=== PATIENT | female | born 2000 | race Caucasian/White ===

== ENCOUNTER 2021-05-21 12:34 | Outpatient (CLI) | payer SELFPAY ==
[2021-05-21 13:02] VITALS: BP 119/58
[2021-05-21] MEDS ORDERED: ACETAMINOPHEN 500 MG TAB PO ONE (13:36)
--- NOTE | 2021-05-21 17:56 | Ultrasound Report ---
ULTRASOUND BIOPHYSICAL PROFILE INDICATION: wellbeing. COMPARISON: None available. FINDINGS: breathing movement = 2 Gross body movement = 2 tone = 2 Qualitative amniotic fluid volume = 2 Total biophysical score = 8/8 SRIRAM 18.9 cm. Presentation is Cephalic. heart rate is 152 beats per minute. IMPRESSION: biophysical profile = 10/01 Amniotic fluid index is 18.9 cm, within normal limits. Signer Name: Gordon Youngblood MD Signed: 05/21/2021 5:51 PM Workstation Name: [id number]
== END 2021-05-21 15:47 | disposition home or self-care (01) ==
LOC: TRG 12:34 → APU 12:35 → TRG 15:47
PROVIDERS: ATTEND Obstetrics & Gynecology
DX: O26.893 Other specified pregnancy related conditions, third trimester (principal); R05.9 Cough, unspecified; Z3A.32 32 weeks gestation of pregnancy
CPT/HCPCS: 59025; 76815; 76819

== ENCOUNTER 2021-07-11 10:56 | Inpatient (IN) | payer MEDICAID ==
--- NOTE | 2021-07-11 12:57 | Ultrasound Report ---
ULTRASOUND BIOPHYSICAL PROFILE INDICATION: well being. COMPARISON: 05/21/2021 FINDINGS: heart rate is 133 beats per minute. breathing movement = 2 Gross body movement = 2 tone = 2 Qualitative amniotic fluid volume = 2 IMPRESSION: biophysical profile = 10/01 Signer Name: Ozzie Hairston Jr, MD Signed: 07/11/2021 12:52 PM Workstation Name: [id number]
--- NOTE | 2021-07-11 13:00 | Ultrasound Report ---
ULTRASOUND OBSTETRIC COMPLETE INDICATION / CLINICAL INFORMATION: well being. Clinical Gestational Age (GA) in weeks.days: 39.3 TECHNIQUE: Transabdominal. COMPARISON: 05/21/2021 FINDINGS: NUMBER: Single PRESENTATION: cephalic PLACENTA: Anterior, grade 2 and free of the os. No evidence for abruption. MATERNAL ADNEXA: No significant abnormality. AMNIOTIC FLUID VOLUME: normal AMNIOTIC FLUID INDEX (SRIRAM) in cm (if measured): 10.9 ANATOMY: anatomical survey was not performed MEASUREMENTS: - Biparietal Diameter = 9.5 cm = 38.5 weeks.days - Head Circumference = 34.8 cm = 40.3 weeks.days - Abdominal Circumference = 33.5 cm = 37.3 weeks.days - Femur Length = 7.4 cm = 37.5 weeks.days - Estimated Weight (in grams, if calculated): 3364 - Heart Rate (beats per minute): 142 ADDITIONAL FINDINGS: None. PERCENTILE ESTIMATED WEIGHT (if calculated): 37 AVERAGE ULTRASOUND AGE (AUA) in weeks.days = 38.4 IMPRESSION: 1. Single intrauterine with AUA of 38.4 weeks.days 2. No significant sonographic abnormality. Signer Name: Ozzie Hairston Jr, MD Signed: 07/11/2021 12:56 PM Workstation Name: [id number]
[2021-07-11] MEDS ORDERED: OXYTOCIN 10 UNIT/1 ML INJ IM PRN (15:59)
[2021-07-11] MEDS ORDERED: PROMETHAZINE 25 MG TAB PO PRN (15:59)
[2021-07-11] MEDS ORDERED: fentaNYL 100 MCG/2 ML INJ IV PRN (15:59)
[2021-07-11] MEDS ORDERED: miSOPROStol 200 MCG TAB PR PRN (15:59)
[2021-07-11] MEDS ORDERED: NalbUPHINE 10 MG/1 ML INJ IV PRN (15:59)
[2021-07-11] MEDS ORDERED: CARBOPROST TROMETHAMINE 250 MCG/1 ML INJ IM PRN (15:59)
[2021-07-11] MEDS ORDERED: ONDANSETRON 4 MG/2 ML INJ IV PRN (15:59)
[2021-07-11] MEDS ORDERED: TERBUTALINE 1 MG/1 ML INJ SUB-Q PRN (15:59)
[2021-07-11] MEDS ORDERED: ACETAMINOPHEN 325 MG TAB PO PRN (15:59)
[2021-07-11] MEDS ORDERED: ePHEDrine SULFATE 50 MG/1 ML INJ IV PRN (15:59)
[2021-07-11] MEDS ORDERED: LIDOCAINE (2%) 20 MG/1 ML VIAL 20 ML MDV INFILTRATI ONE (15:59)
[2021-07-11] MEDS ORDERED: LOPERAMIDE 2 MG CAP PO PRN (15:59)
[2021-07-11] MEDS ORDERED: MINERAL OIL 30 ML ORAL LIQD PO PRN (15:59)
[2021-07-11] MEDS ORDERED: METHYLERGONOVINE MALEATE 0.2 MG/ML VIAL IM PRN (15:59)
[2021-07-11] MEDS ORDERED: OXYTOCIN DRIP 30 UNITS/500 ML BAG IV SCH (16:00)
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
[2021-07-11 19:28] LABS: Hemoglobin 12.2 gm/dl (10.1-14.3); Mean Corpuscular HGB Conc 33 % (30-34); Mean Corpuscular Volume 84 fl (79-97); Platelet Count 206 K/mm3 (140-440); Red Blood Count 4.38 M/mm3 (3.65-5.03); Red Cell Distribution Width 15.1 % (13.2-15.2)
[2021-07-11] MEDS: LACTATED RINGERS 1,000 ML IV SCH (21:25)
[2021-07-11] MEDS: miSOPROStol 25 MCG TAB PO SCH (22:27)
[2021-07-12] MEDS: miSOPROStol 25 MCG TAB PO SCH (03:25)
[2021-07-12 06:21] LABS: Amphetamine Screen,Urine Negative; Benzodiazepines Screen,Urine Negative; Cocaine Screen,Urine Negative; Methadone Screen,Urine Negative; Opiate Screen,Urine Negative
[2021-07-12 06:38] LABS: Cannabinoid Screen,Urine PRESUMPTIVE POSITIVE
[2021-07-12] MEDS ORDERED: ONDANSETRON 4 MG/2 ML INJ IV PRN ×2 (09:00→19:36)
[2021-07-12] MEDS: OXYTOCIN DRIP 30 UNITS/500 ML BAG IV SCH ×2 (11:17→18:25)
[2021-07-12] MEDS ORDERED: BUPIVACAINE/PF (0.25%) 2.5 MG/ML 10 ML VIAL INFILTRATI ONE (12:40)
[2021-07-12] MEDS ORDERED: fentaNYL-BUPIV 2 MCG/ML-0.125% 200 MCG/100 ML BAG EPIDURAL ONE (13:23)
[2021-07-12] MEDS ORDERED: ePHEDrine SULFATE 50 MG/1 ML INJ IV PRN (13:41)
[2021-07-12] MEDS ORDERED: NALOXONE 2 MG/2 ML INJ IV PRN (13:41)
--- NOTE | 2021-07-12 13:45 | Anesthesia Consultation ---
Anesthesia Consult and Med Hx Date of service: 07/12/21 - Airway Anesthetic Teeth Evaluation: Good ROM Head & Neck: Adequate Mental/Hyoid Distance: Adequate Mallampati Class: Class II Intubation Access Assessment: Probably Good - Pulmonary Exam CTA: Yes - Cardiac Exam Cardiac Exam: RRR - Pre-Operative Health Status ASA Pre-Surgery Classification: ASA2 Proposed Anesthetic Plan: Epidural - Pre-Anesthesia Comment Pre-Anesthesia Comments: D&E No Anesthesia Complications - Pulmonary Hx Asthma: No COPD: No Hx Pneumonia: No - Cardiovascular System Hx Hypertension: No - Central Nervous System Hx Seizures: No Hx Psychiatric Problems: Yes (PTSD, Depression) - Endocrine Hx Renal Disease: No Hx End Stage Renal Disease: No Hx Liver Disease: No Hx Insulin Dependent Diabetes: No Hx Non-Insulin Dependent Diabetes: No Hx Hypothyroidism: No Hx Hyperthyroidism: No - Hematic Hx Anemia: No Hx Sickle Cell Disease: No - Other Systems Hx Alcohol Use: No Hx Substance Use: No
--- NOTE | 2021-07-12 13:50 | Progress Note ---
Labor Epidural - Labor Epidural Start Time: 12:45 Stop Time: 12:54 Performed by:: JANE DELVALLE Procedure: Patient is requesting a laboring epidural for laboring pain. Patient IDed, H&P reviewed, all questions and concerns were answered, and consent was signed. Timeout was performed at bedside. Patient in sitting position. Sterile prep and drape was performed. [3] ml of 1% lidocaine skin wheal at L[3]- L [4]. 17- gauge Tuohy epidural needle was advanced to loss of resistance with saline technique 6cm. Single dural perforation via 24 gauge spinal needle placed through the shaft of Epidural needle. Positive clear CSF via spinal needle. Negative CSF, negative blood via Epidural needle. Epidural catheter advanced to [10] centimeters. [NEGATIVE] Aspiration [NEGATIVE] test dose. Negative Paresthesia. Sterile dressing applied. Patient tolerated procedure. Pain relieved post procedure from 8/10 to 0/10.
[2021-07-12] MEDS ORDERED: fentaNYL-BUPIV 2 MCG/ML-0.125% 200 MCG/100 ML BAG EPIDURAL SCH (15:00)
[2021-07-12] MEDS ORDERED: miSOPROStol 200 MCG TAB ONE (15:54)
[2021-07-12] MEDS ORDERED: OXYTOCIN 10 UNIT/1 ML INJ ONE (15:54)
--- NOTE | 2021-07-12 16:31 | Procedure Note ---
OB Delivery Note - Delivery Date of Delivery: 07/12/21 Surgeon: LONNIE BONILLA Estimated blood loss: 300cc - Vaginal Delivery presentation: vertex Delivery position: OA Intrapartum events: abruption (partial), shoulder dystocia Delivery induction: oxytocin Delivery augmentation: rupture of membranes Delivery monitor: external FHT, external uterine Route of delivery: Delivery placenta: spontaneous (with small area of abruption) Episiotomy: none Delivery laceration: 2nd degree (perineal ) Delivery repair: vicryl, chromic Anesthesia: epidural Delivery comments: pt complete after given epidural and pitocin. Pt c/o pelvic pressure at anterior lip and same reduced with difficulty to complete. SAVD of viable male . Shoulder dystocia relieved with Cruz, suprapubic pressure and then delivery of posterior left arm and then anterior right arm followed by the body. Amniotic fluid slimmy but clear. Spontaneous delivery of partially placenta with 3vessel cord and IV fell out and therefore given pitocin 10mg IM to buttock and cytotec 800mcg per rectum. Bimanual massage done and lower uterine segment evacuated of clots and Visualization of cervix show no lacerations. Pt sustained 2nd degree perineal laceration towards the right side. 2-0 chromic vicryl used to repair laceration in a running locked fashion with excellent hemostasis. Additional right labial 1st laceration reapproximated with 2-0 chromic running locked sutue and excellent hemostasis remains. Mom and baby stable. - A at 1 minute: 8 at 5 minutes: 9 Infant Gender: Male (wt 3510g; slimmy clear amniotic fluid)
[2021-07-12 17:52] LABS: Alanine Aminotransferase 12 units/L (7-56); Albumin 3.7 g/dL (3.9-5); Blood Urea Nitrogen 9 mg/dL (7-17); Calcium 9.3 mg/dL (8.4-10.2); Hemolysis Index 0
[2021-07-12 17:53] LABS: BUN/Creatinine Ratio 15
[2021-07-12] MEDS ORDERED: PROMETHAZINE 25 MG RECT SUPP PR PRN (19:36)
[2021-07-12] MEDS ORDERED: diphenhydrAMINE 25 MG CAP PO PRN (19:36)
[2021-07-12] MEDS ORDERED: oxyCODONE /ACETAMINOPHEN 5-325MG TAB PO PRN (19:36)
[2021-07-12] MEDS ORDERED: ACETAMINOPHEN 325 MG TAB PO PRN (19:36)
[2021-07-12] MEDS ORDERED: PROMETHAZINE 25 MG TAB PO PRN (19:36)
[2021-07-12] MEDS ORDERED: MAGNESIUM HYDROXIDE (MOM) ORAL LIQD UDC PO PRN (19:36)
[2021-07-12] MEDS ORDERED: WITCH HAZEL/ GLYCERIN PAD TP PRN (19:36)
[2021-07-12] MEDS ORDERED: LANOLIN/ZINC/DIMETHICONE (LANSINOH) 7 GM TP PRN (19:36)
[2021-07-12] MEDS: IBUPROFEN 800 MG TAB PO SCH (20:25)
[2021-07-13] MEDS: LACTATED RINGERS 1,000 ML IV SCH (02:24)
[2021-07-13] MEDS: IBUPROFEN 800 MG TAB PO SCH ×3 (02:45→20:18)
[2021-07-13 08:40] LABS: Hematocrit 30.9 % (30.3-42.9); Hemoglobin 10.3 gm/dl (10.1-14.3); Mean Corpuscular HGB Conc 33 % (30-34); Mean Corpuscular Volume 84 fl (79-97); Platelet Count 179 K/mm3 (140-440); Red Blood Count 3.67 M/mm3 (3.65-5.03); Red Cell Distribution Width 15.2 % (13.2-15.2)
--- NOTE | 2021-07-13 09:18 | Post Anesthesia Evaluation ---
- Post Anesthesia Evaluation Patient Participated: Yes Airway Patent: Yes Stable Respiratory Function: Yes Nausea/Vomiting: No Temp > 96.8F: Yes Pain Manageable: Yes Adequeate Hydration: Yes Anesthesia Complications: No Block Receding Appropriately: Yes Patient on Ventilator: No
--- NOTE | 2021-07-13 12:08 | Progress Note ---
Assessment and Plan A: day 1 S/P . Anemia. P: Supplement with oral iron. Continue routine care. Anticipate discharge home tomorrow if patient continues to do well. Subjective - Subjective Date of service: 07/13/21 Principal diagnosis: day 1 S/P Patient reports: appetite normal, voiding normally, pain well controlled, flatus, ambulating normally, no dizzy ambulation, no nauseated Auberry: doing well Objective - Vital Signs Latest vital signs: Vital Signs Temp Pulse Resp BP BP Pulse Ox Pulse Ox 07/13/21 08:00 98 07/13/21 07:54 73 22 124/62 98 07/13/21 04:05 98.2 F 82 20 136/68 100 07/13/21 00:07 98.2 F 76 20 123/70 99 07/12/21 21:01 98.2 F 78 20 117/74 100 07/12/21 20:14 98.1 F 79 20 131/77 98 98 07/12/21 17:20 80 125/60 07/12/21 16:50 93 H 109/67 07/12/21 16:20 92 H 118/58 07/12/21 15:50 88 130/66 07/12/21 15:21 99 H 136/66 07/12/21 15:06 83 99 07/12/21 15:01 68 98 07/12/21 14:56 78 99 07/12/21 14:51 77 98 07/12/21 14:50 96 H 125/87 91 07/12/21 14:46 83 98 07/12/21 14:41 73 97 07/12/21 14:36 69 97 07/12/21 14:31 71 99 07/12/21 14:26 72 98 07/12/21 14:21 69 146/91 100 07/12/21 14:19 67 92 07/12/21 14:16 70 179/84 99 07/12/21 14:11 75 149/72 100 07/12/21 14:06 73 134/100 07/12/21 14:05 98 H 97 07/12/21 14:00 77 146/113 98 07/12/21 13:55 73 152/89 97 07/12/21 13:50 72 160/99 97 07/12/21 13:45 72 98 07/12/21 13:44 73 152/87 07/12/21 13:40 74 98 07/12/21 13:39 70 138/94 07/12/21 13:38 20 138/65 07/12/21 13:35 74 138/89 99 07/12/21 13:30 64 142/72 99 07/12/21 13:25 81 140/87 95 07/12/21 13:20 80 175/89 99 07/12/21 13:15 79 162/90 99 07/12/21 13:12 76 93 07/12/21 13:10 84 100 07/12/21 13:09 84 133/63 07/12/21 13:05 88 99 07/12/21 13:04 80 138/65 07/12/21 13:00 76 138/62 99 07/12/21 12:55 82 139/77 99 07/12/21 12:50 73 162/96 100 07/12/21 12:45 88 130/93 95 07/12/21 12:40 76 105/57 97 07/12/21 12:35 78 99 07/12/21 12:30 85 98 07/12/21 12:25 81 134/82 98 07/12/21 12:20 76 98 07/12/21 12:15 77 97 07/12/21 12:11 70 144/85 07/12/21 12:10 72 91 Intake and Output 07/12/21 07/13/21 07/13/21 23:59 07:59 15:59 Intake Total 100 240 Output Total 1 Balance 100 239 Intake: IV 100 PITOCin/NS 30 UNIT/500ML 0 30 units In 500 ml @ 40 mls/hr IV TITR [facility] Rx#: [id number] ceFAZolin 2 GM In NaCl 0. 100 9% 100 ml @ 200 mls/hr IV Q8H [facility] Rx#:[id number] Oral 240 Output: Urine 1 Void 1 Other: Total, Intake Amount 240 Total, Output Amount 1 Estimated Blood Loss 300 - Exam Cardiovascular: Present: Regular rate Lungs: Present: Clear to auscultation Abdomen: Present: normal appearance, soft. Absent: distention, tenderness, guarding, rigidity Uterus: Present: normal, firm, fundal height below umbilicus. Absent: bogginess, tenderness Extremities: Absent: tenderness, edema - Labs Labs: Abnormal lab results 05/19/22 05/20/22 Range/Units 16:39 08:00 WBC 13.6 H (4.5-11.0) K/mm3 Carbon Dioxide 21 L (22-30) mmol/L Alkaline Phosphatase 224 H (35-129) units/L Total Protein 6.1 L (6.3-8.2) g/dL Albumin 3.7 L (3.9-5) g/dL
[2021-07-13] MEDS: PRENATAL VIT27-FE FUMARATE-FOLIC ACID VIT TAB PO SCH (12:17)
[2021-07-13] MEDS: FERROUS SULFATE 325 MG TAB PO SCH (12:20)
[2021-07-13] MEDS ORDERED: BENZOCAINE/MENTHOL 20/0.5% TOP SPRAY 56 GM TP PRN (12:30)
--- NOTE | 2021-07-13 14:40 | Consultation ---
History of Present Illness - Reason for Consult Consult date: 07/13/21 Reason for consult: hx of depression - History of Present Psychiatric Illness The patient was seen today. She was admitted for childbirth. The patient is calm, cooperative and pleasant. She is also polite. The patient says she has a history of depression, anxiety and PTSD. She says in 2019 she had a miscarriage and it was very hard for her. She also says in the past she attempted suicide twice. She denies SI/HI. She says "that's when I was young. I got so much to live for now; the baby." She says she feels good. The patient says she was seeing a psychiatrist and a therapist back then, but not one since 2019. She says he has never been on medications, and not really interested now. She says she would like to work through things with therapy. The patient denies any illicit drug use outside of THC in the past. PAST PSYCHIATRIC HISTORY: Diagnoses: PTSD, Depression, anxiety Suicide attempts or Self-harm behavior: Yes Prior psychiatric hospitalizations: Yes Substance Abuse history: Denies Previous psychiatric medications tried: Denies Outpatient treatment: not at present PAST MEDICAL HISTORY: None reported Family Psychiatric History: None reported SOCIAL HISTORY Marital Status: Single Living Arrangements: with child's father Employment Status: Unemployed Access to guns/weapons: Denies Education: high school History of Abuse: Denies Legal History: Denies REVIEW OF SYSTEMS Constitutional: Negative for weight loss ENT: Negative for stridor Respiratory: Negative for cough or hemoptysis All other systems reviewed and are negative MENTAL STATUS EXAMINATION General Appearance: Dressed appropriately Behavior: calm and cooperative, pleasant, polite Mood: good Affect and affective range: congruent with mood Thought Process: Goal directed Thought content: Optimistic Speech: Normal tone and pace Suicidal Ideation: Denies Homicidal Ideation: Denies Hallucinations: Denies Delusions: None elicited Insight and Judgment: Good insight and judgment Memory: Good Attention: attentive Orientation: Alert, oriented Assessment Hx of MDD Treatment Plan No scripts given Sitter: Defer to primary Medical: Per primary Disposition: Do not recommend acute psychiatric inpatient treatment The shoe laster to give the patient all necessary outpatient resources Will sign off. Thank you for this consult. Case staffed with Dr. Carty Medications and Allergies Allergies Allergy/AdvReac Type Severity Reaction Status Date / Time No Known Allergies Allergy Verified 07/11/21 11:40 Active Meds: Active Medications Acetaminophen (Acetaminophen 325 Mg Tab) 650 mg PO Q4H PRN PRN Reason: Pain MILD(1-3)/Fever >100.5/NOLASCO Benzocaine/Menthol (Benzocaine/Menthol 20/0.5% [place] 56 Gm) 1 spray TP TID PRN PRN Reason: Pain, Mild (1-3)EPISIOTOMY Bisacodyl (Bisacodyl 10 Mg Rect Supp) 10 mg RI BID PRN PRN Reason: Constipation Carboprost Tromethamine (Carboprost Tromethamine 250 Mcg/1 Ml Inj) 250 mcg IM ONCE PRN PRN Reason: Uterine Bleeding Diphenhydramine HCl (Diphenhydramine 25 Mg Cap) 25 mg PO Q6H PRN PRN Reason: Itching Ferrous Sulfate (Ferrous Sulfate 325 Mg Tab) 325 mg PO QDAY [facility] Last Admin: 07/13/21 12:20 Dose: 325 mg Lactated Ringer's (Lactated Ringers) 1,000 mls @ 125 mls/hr IV DIRECT AMY Last Admin: 07/13/21 02:24 Dose: 125 mls/hr Oxytocin/Sodium Chloride (Pitocin/Ns 30 Unit/500ml) 30 units in 500 mls @ 40 mls/hr IV TITR AMY; Protocol Last Admin: 07/12/21 18:25 Dose: 144 mls/hr Ibuprofen (Ibuprofen 800 Mg Tab) 800 mg PO Q6H [facility] Last Admin: 07/13/21 12:20 Dose: 800 mg Magnesium Hydroxide (Magnesium Hydroxide (Mom) Oral Liqd Udc) 30 ml PO HS PRN PRN Reason: Constipation Methylergonovine Maleate (Methylergonovine Maleate 0.2 Mg/Ml Vial) 0.2 mg IM ONCE PRN PRN Reason: Uterine Bleeding Multi-Ingredient Ointment (Lanolin/Zinc/Dimethicone (Lansinoh) 7 Gm) 1 applic TP PRN PRN PRN Reason: Sore Nipples Multivitamins/Iron/Calcium ( Zsw19-Mq Fumarate-Folic Acid Vit Tab) 1 each PO QDAY [facility] Last Admin: 07/13/21 12:17 Dose: 1 each Ondansetron HCl (Ondansetron 4 Mg/2 Ml Inj) 4 mg IV Q8H PRN PRN Reason: Nausea And Vomiting Oxycodone/Acetaminophen (Oxycodone /Acetaminophen 5-325mg Tab) 2 tab PO Q6H PRN PRN Reason: Pain, Moderate (4-6) Promethazine HCl (Promethazine 25 Mg Rect Supp) 25 mg RI Q6H PRN PRN Reason: Nausea And Vomiting Promethazine HCl (Promethazine 25 Mg Tab) 25 mg PO Q6H PRN PRN Reason: Nausea And Vomiting Sodium Chloride (Sodium Chloride 0.9% 10 Ml Flush Syringe) 10 ml IV PRN PRN PRN Reason: LINE FLUSH Witch Gwendolyn/Glycerin (Witch Gwendolyn/ Glycerin Pad) 1 each TP PRN PRN PRN Reason: Hemorrhoid/cleansing/soothing Last Admin: 07/13/21 02:24 Dose: 1 each Mental Status Exam - Vital signs Last Vital Signs Temp 98.2 F 07/13/21 04:05 Pulse 73 07/13/21 07:54 Resp 22 07/13/21 07:54 BP 124/62 07/13/21 07:54 Pulse Ox 98 07/13/21 08:00 Results Result Diagrams: 07/13/21 08:00 07/12/21 16:39 Abnormal lab results 07/12/21 07/13/21 Range/Units 16:39 08:00 WBC 13.6 H (4.5-11.0) K/mm3 Carbon Dioxide 21 L (22-30) mmol/L Alkaline Phosphatase 224 H (35-129) units/L Total Protein 6.1 L (6.3-8.2) g/dL Albumin 3.7 L (3.9-5) g/dL All other labs normal.
[2021-07-14] MEDS: IBUPROFEN 800 MG TAB PO SCH ×2 (02:06→09:46)
[2021-07-14] MEDS ORDERED: TETANUS,DIPH,PERTUSS(ACELL) VACCINE 0.5 ML SYRINGE IM ONE (06:00)
--- NOTE | 2021-07-14 06:40 | Progress Note ---
Subjective - Subjective Principal diagnosis: day 1 S/P Interval history: stable for DC to home Lakesha Gaxiola MD Patient reports: appetite normal, voiding normally, pain well controlled, ambulating normally : doing well Objective - Vital Signs Latest vital signs: Vital Signs Temp Pulse Resp BP BP Pulse Ox Pulse Ox 07/14/21 01:50 98.0 F 67 18 113/60 96 07/13/21 20:20 100 07/13/21 18:19 98.0 F 85 22 128/74 07/13/21 08:00 98 07/13/21 07:54 73 22 124/62 98 Intake and Output 07/13/21 07/13/21 07/14/21 15:59 23:59 07:59 Intake Total 240 480 Balance 240 480 Intake: Intake, Free Water 240 480 Other: # Voids Void 1 2 - Labs Labs: Abnormal lab results 07/13/21 Range/Units 08:00 WBC 13.6 H (4.5-11.0) K/mm3
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
[2021-07-14] MEDS: FERROUS SULFATE 325 MG TAB PO SCH (09:45)
[2021-07-14] MEDS: PRENATAL VIT27-FE FUMARATE-FOLIC ACID VIT TAB PO SCH (09:45)
[2021-07-14 12:23] VITALS: BP 118/75
== END 2021-07-14 12:37 | disposition home or self-care (01) | DRG 774 ==
LOC: TRG 10:56 → APU 10:57 → TRG 16:28 → APU 16:29 → LD 18:45 → OB 07-12 18:29
PROVIDERS: ADMIT Obstetrics & Gynecology; ATTEND Obstetrics & Gynecology
PROC: 10E0XZZ Delivery of Products of Conception, External Approach (ICD-10-PCS; principal; 2021-07-12)
PROC: 0KQM0ZZ Repair Perineum Muscle, Open Approach (ICD-10-PCS; 2021-07-12)
PROC: 3E0R3BZ Introduction of Anesthetic Agent into Spinal Canal, Percutaneous Approach (ICD-10-PCS; 2021-07-12)
PROC: 00HU33Z Insertion of Infusion Device into Spinal Canal, Percutaneous Approach (ICD-10-PCS; 2021-07-12)
PROC: 3E033VJ Introduction of Other Hormone into Peripheral Vein, Percutaneous Approach (ICD-10-PCS; 2021-07-12)
DX: O66.0 Obstructed labor due to shoulder dystocia (principal); O45.93 Premature separation of placenta, unspecified, third trimester; Z3A.39 39 weeks gestation of pregnancy; Z20.822 Contact with and (suspected) exposure to COVID-19; O99.62 Diseases of the digestive system complicating childbirth; K21.9 Gastro-esophageal reflux disease without esophagitis; O99.344 Other mental disorders complicating childbirth; F32.9 Major depressive disorder, single episode, unspecified; O70.1 Second degree perineal laceration during delivery; O90.81 Anemia of the puerperium
CPT/HCPCS: 36415; 59025; 76816; 76819; 80053; 80307; 85027; 86592; 86850; 86900; 86901; 90715; 96360; 96361; 96365; 96366; 96374; 99211; G0378; G0463; J0690; J2300; J2405; J2590; J3010; J7120; U0003